=== PATIENT | female | born 1985 | race Caucasian/White ===

== ENCOUNTER 2019-05-28 11:32 | Outpatient (CLI) | payer BC ==
--- NOTE | 2019-05-28 12:03 | RAD ---
XR Thoracic Spine 3 V STANDARD History: Back pain Comparison: None. Findings: No acute fracture or malalignment. Possible nodule projects over the right upper lobe measu ring 6 mm. Posterior ribs are intact. Low-grade midthoracic spine degenerative disc space narrowing with osteophyte at T6/T7. Impression: 1. Low-grade midthoracic spine degenerative disease. 2. Possible 6 mm nodule projecting over the right upper lobe. Follow-up chest radiographs recommended .
== END 2019-05-28 11:33 | disposition home or self-care (01) ==
LOC: BICRAD 11:32
PROVIDERS: ATTEND Specialist
DX: M54.6 Pain in thoracic spine (principal); M51.34 Other intervertebral disc degeneration, thoracic region
CPT/HCPCS: 72072

== ENCOUNTER 2019-06-24 09:47 | Outpatient (CLI) | payer BC ==
--- NOTE | 2019-06-24 10:41 | CT ---
CT Chest WO Con HISTORY: Right upper lobe pulmonary nodule noted on thoracic spine series. COMPARISON: Thoracic spine exam of 05/28/2019. FINDINGS: The lungs are clear of any infiltrative process. There is a calcified right upper lobe pulm onary nodule corresponding to the density noted on the previous plain film. Consistent with a calcified granuloma. No additional nodules identified. No infiltrative process or effusion. No significant mediastinal, hilar or axillary adenopathy. The visualized liver parenchyma is unremarkable. IMPRESSION: The nodular density noted on the thoracic spine series corresponds to a right upper lobe calcified granuloma.
== END 2019-06-24 09:48 | disposition home or self-care (01) ==
LOC: CT 09:47
PROVIDERS: ATTEND Specialist
DX: R91.1 Solitary pulmonary nodule (principal); J84.10 Pulmonary fibrosis, unspecified
CPT/HCPCS: 71250

== ENCOUNTER 2019-08-07 08:56 | Outpatient (CLI) | payer BC, OTHER ==
--- NOTE | 2019-08-07 09:19 | RAD ---
EXAM: Chest PA and lateral: HISTORY: Dyspnea COMPARISON: None FINDINGS: Heart: Normal cardiac silhouette Aorta: Unremarkable Pulmonary vessels: Normal Costophrenic angles: Costophrenic angles are clear. Lungs: No consolidation or masses. Pneumothorax: No pneumothorax Osseous structures: No osseous abnormalities IMPRESSION: No acute cardiopulmonary process.
== END 2019-08-07 08:57 | disposition home or self-care (01) ==
LOC: RAD 08:56
PROVIDERS: ATTEND Internal Medicine Critical Care Medicine
DX: R06.00 Dyspnea, unspecified (principal)
CPT/HCPCS: 71046

== ENCOUNTER 2025-07-02 08:48 | Outpatient (CLI) | payer BC | END 2025-07-02 08:49 | disposition home or self-care (01) | LOC: SCSMRI 08:48 | PROVIDERS: ATTEND Specialist | DX: M48.061 Spinal stenosis, lumbar region without neurogenic claudication (principal) | CPT/HCPCS: 72158 ==